=== PATIENT | female | born 1985 | race Asian ===

== ENCOUNTER 2020-03-08 18:44 | Emergency (ER) | payer OTHER ==
[~2020-03-08] VITALS: Ht 152.4 cm; Wt 54.5 kg
--- NOTE | 2020-03-08 19:25 | PHYS DOC ---
General Adult EDM: Chief Complaint: COUGH HPI: HPI: 35-year-old female presents emergency department complaints of cough x1 week. She states she has difficulty sleeping at night. This cough is nonproductive. She denies any fever, body aches, nasal congestion. She states she did have some sore throat however was taking some [id number]-[id number]-[id number] medication which did improve. She is concerned because the cough is still present she denies any nausea, vomiting, dumping, diarrhea. Last menstrual period was last month, urine pending she denies any sick contacts at home. Nothing makes her symptoms worse, nothing makes her symptoms better. 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 [] HENT: Sore throat, resolved Respiratory: Cough Cardiovascular: Denies chest pain or edema. [] GI: Denies abdominal pain, nausea, vomiting, bloody stools or diarrhea. [] : Denies dysuria. [] Musculoskeletal: Denies back pain or joint pain. [] Integument: Denies rash. [] Neurologic: Denies headache, focal weakness or sensory changes. [] Heart Score: Risk Factors: Risk Factors: DM, Current or recent (<one month) smoker, HTN, HLP, family history of CAD, obesity. Risk Scores: Score 0 - 3: 2.5% MACE over next 6 weeks - Discharge Home Score 4 - 6: 20.3% MACE over next 6 weeks - Admit for Clinical Observation Score 7 - 10: 72.7% MACE over next 6 weeks - Early Invasive Strategies Allergies: Allergies: Allergies Coded Allergies Type Severity Reaction Last Updated Verified No Known Drug Allergies 03/08/20 No Physical Exam: PE: Constitutional: Well developed, well nourished, no acute distress, non-toxic appearance. [] HENT: Normocephalic, atraumatic, bilateral external ears normal, oropharynx mo ist, no oral exudates, nose normal. [] Eyes: PERRLA, EOMI, conjunctiva normal, no discharge. [] Neck: Normal range of motion, no tenderness, supple, no stridor. [] Cardiovascular:Heart rate regular rhythm, no murmur [] Lungs & Thorax: Bilateral breath sounds clear to auscultation [] Abdomen: Bowel sounds normal, soft, no tenderness, no masses, no pulsatile masses. [] Skin: Warm, dry, no erythema, no rash. [] ] Neurologic: Alert and oriented X 3, no focal deficits noted. [] Psychologic: Affect normal, judgement normal, mood normal. [] EKG: EKG: [] Radiology/Procedures: Radiology/Procedures: [facility] [address] [place] [address] IMAGING REPORT Signed PATIENT: DANILO MENDOSA ACCOUNT: [id number] : 1985 LOCATION: ER AGE: 35 SEX: F EXAM STATUS: REG ER ORD. PHYSICIAN: BRENDA SEGOVIA MD REASON: COugh PROCEDURE: CHEST PA & LATERAL Exam: Chest 2 views INDICATION: Cough TECHNIQUE: Frontal and lateral views the chest Comparisons: None FINDINGS: The cardiomediastinal silhouette and pulmonary vessels are within normal limits. Subtle patchy opacities at the lung bases bilaterally. No pleural effusion. IMPRESSION: Subtle patchy opacities the lung bases bilaterally, may relate to atelectasis versus developing consolidative process. Electronically signed by: Elan Yao MD (03/08/2020 7:54 PM) [id number] DICTATED and SIGNED BY: ELAN YAO MD DATE: 03/08/201953 [] Course & Med Decision Making: Course & Med Decision Making Pertinent Labs and Imaging studies reviewed. (See chart for details) [] 35-year-old female presents emergency department complaints of cough x1 week. She states she has difficulty sleeping at night. This cough is nonproductive. She denies any fever, body aches, nasal congestion. She states she did have some sore throat however was taking some [id number] medication which did improve. She is concerned because the cough is still present she denies any nausea, vomiting, dumping, diarrhea. Last menstrual period was last month, urine pending she denies any sick contacts at home. Nothing makes her symptoms worse, nothing makes her symptoms better. CXR with evidence of possible developing consolidation Recommend abx therapy upon discharge Cough medications provided Tessalon pearls provided Tylenol as needed Asael Disclaimer: Asael Disclaimer: This electronic medical record was generated, in whole or in part, using a voice recognition dictation system. Departure Departure Impression: Primary Impression: URI (upper respiratory infection) Qualified Codes: J06.9 - Acute upper respiratory infection, unspecified Disposition: HOME, SELF-CARE Condition: STABLE Patient Instructions: Upper Respiratory Infection, Adult, [id number] Additional Instructions: Recommend taking abx upon discharge - Azithromycin Tylenol as needed Tessalon pearls and cough medication rx provided Return to the ER with SOB, fever that does not resolve, worsening symptoms Chest xray shows possible developing infection Scripts Benzonatate (TESSALON PERLE) 100 Mg Capsule 1 CAP PO TID for cough, #21 CAP Prov: BRENDA SEGOVIA MD 03/08/20 Guaifenesin/Dextromethorphan (Robitussin Cough-Chest Dm Liq) 237 Ml Liquid 237 ML PO Q6-8HRS PRN for COUGH for 5 Days, LIQUID Prov: BRENDA SEGOVIA MD 03/08/20 Azithromycin (AZITHROMYCIN TABLET) 500 Mg Tablet 1 TAB PO DAILY for 5 Days, #5 TAB 0 Refills Prov: BRENDA SEGOVIA MD 03/08/20 BRENDA SEGOVIA MD Mar 08, 2020 19:25
[2020-03-08 19:35] VITALS: BP 115/79
--- NOTE | 2020-03-08 19:57 | RAD ---
Exam: Chest 2 views INDICATION: Cough TECHNIQUE: Frontal and lateral views the chest Comparisons: None FINDINGS: The cardiomediastinal silhouette and pulmonary vessels are within normal limits. Subtle patchy opacities at the lung bases bilaterally. No pleural effusion. IMPRESSION: Subtle patchy opacities the lung bases bilaterally, may relate to atelectasis versus developing consolidative process. Electronically signed by: Elan Jackson MD (03/08/2020 7:54 PM) [id number]
[2020-03-08] MEDS ORDERED: GUAI237L83 PO (20:19)
[2020-03-08] MEDS ORDERED: BENZ100C PO (20:19)
[2020-03-08] MEDS ORDERED: AZIT500T4 PO (20:19)
== END 2020-03-08 20:30 | disposition home or self-care (01) ==
LOC: ER 18:44
DX: J06.9 Acute upper respiratory infection, unspecified (principal)
CPT/HCPCS: 71046; 81025; 99283